=== PATIENT | female | born 1990 | race African-American/Black ===

== ENCOUNTER → 2017-03-04 | Day surgery (SDC) | payer OTHER ==
[~2017-03-04] MED LIST: NO MEDICATIONS
--- NOTE | ~2017-03-04 | OR ---
Unit #: [id number] #: [id number] Patient: JOEY TERRAZAS [id number] [address] [address] [id number] O MR#: [id number] NAME: JOEY TERRAZAS ROOM: Date of Procedure: 03/04/2017 Admission Date: 03/04/2017 Surgeon: Allan Clark M.D. : 1990 Attending Physician: Allan Clark M.D. Primary Care Physician: Primary Care Physician No OPERATIVE REPORT PROCEDURE PERFORMED Colonoscopy to cecum. INDICATIONS FOR PROCEDURE A 26-year-old female with significant blood in the stool, recurrent ulcer with constipation, undergoing colonoscopy for evaluation. MEDICATIONS Monitored anesthesia. POSTOPERATIVE FINDINGS 1. Colonoscopy completed to terminal ileum. Colonic mucosa was normal throughout. Terminal ileum was normal. 2. Grade 2 internal hemorrhoids, most likely the cause of bleeding. PLAN Consider IRC for treatment. High-fiber diet and stool softeners to continue. DESCRIPTION OF PROCEDURE The patient was explained of the procedure, risks, and benefits along with the risks and benefits of anesthesia. She was brought to the endoscopy room. Propofol anesthesia was given. Rectal exam was done, which was normal. Colonoscope was lubricated, passed up the rectum, advanced under direct vision all the way to the cecum. Cecum was identified by ileocecal valve and appendiceal orifice. Terminal ileum was intubated, shows normal mucosa. Colonic mucosa was normal. I retroflexed in the rectum, internal hemorrhoids noted. Gently, the scope was pulled out. She tolerated it well. Dictated by... Henry Kelly/tae TD: 03/04/2017 22:32 JOB #: [id number] Unit #: [id number] #: [id number] Patient: JOEY TERRAZAS OPERATIVE REPORT Page 1 of 1 X Allan Clark MD PROCEDURE OPERATIVE NOTE
== END | disposition home or self-care (01) ==
LOC: COPS 12:46
DX: K64.1 Second degree hemorrhoids (principal); F17.210 Nicotine dependence, cigarettes, uncomplicated; Z88.2 Allergy status to sulfonamides
CPT/HCPCS: 84703; J2250